=== PATIENT | male | born 1980 | race Caucasian/White ===

== ENCOUNTER 2021-06-21 00:22 | Emergency (ER) | payer SELFPAY ==
[2021-06-21] MEDS ORDERED: Lidocaine 1% w/Epinephrine 1:100K 20 ML VIAL ONE (02:50)
[2021-06-21] MEDS ORDERED: Boostrix 0.5 ML (Tdap) VIAL ONE (02:50)
[2021-06-21] MEDS ORDERED: Bacitracin 1 PK ONE (04:02)
== END 2021-06-21 04:09 | disposition home or self-care (01) ==
LOC: ERS 00:22
DX: S81.812A Laceration without foreign body, left lower leg, initial encounter (principal); X58.XXXA Exposure to other specified factors, initial encounter
CPT/HCPCS: 12002; 90471; 90715

== ENCOUNTER 2023-04-04 15:40 | Emergency (ER) | payer OTHER, SELFPAY | END 2023-04-04 16:20 | disposition home or self-care (01) | LOC: ERS 15:40 | DX: S61.216A Laceration without foreign body of right little finger without damage to nail, initial encounter (principal); F17.210 Nicotine dependence, cigarettes, uncomplicated; W26.8XXA Contact with other sharp object(s), not elsewhere classified, initial encounter; Y93.89 Activity, other specified | CPT/HCPCS: 12001 ==